=== PATIENT | female | born 1960 | race Caucasian/White ===

== ENCOUNTER → 2017-05-22 | Outpatient (CLI) | payer BC | LOC: LAB 13:59 | DX: E03.4 Atrophy of thyroid (acquired) (principal); N02.8 Recurrent and persistent hematuria with other morphologic changes ==

== ENCOUNTER → 2017-06-04 | Outpatient (CLI) | payer BC | LOC: LAB 07:34 | DX: N02.8 Recurrent and persistent hematuria with other morphologic changes (principal) ==

== ENCOUNTER → 2017-06-05 | Outpatient (CLI) | payer BC | LOC: MAMMO 08:13 | DX: Z12.31 Encounter for screening mammogram for malignant neoplasm of breast (principal) | CPT/HCPCS: G0202 ==

== ENCOUNTER → 2017-10-29 | Outpatient (CLI) | payer BC | LOC: RAD 12:17 | DX: M19.012 Primary osteoarthritis, left shoulder (principal) ==

== ENCOUNTER → 2017-12-07 | Outpatient (CLI) | payer BC ==
[~2017-12-07] VITALS: Ht 162.6 cm; Wt 74.5 kg
[~2017-12-07] MED LIST: ADVAIR DISKUS1 DS2 IH; AMBIEN5 M1 PO; CALCIUM500 M1 PO; GOOD NEIGHBOR180 MG PO; LEVOTHYROXINE0.05 MG PO; LOSARTAN POTASS50 M1 PO; MULTIVITAMIN1 SGL PO; SINGULAIR PO
[2017-12-07 08:05] LABS: EOS # 0.3 (0.04-0.40); EOS % 4.9 % (1.0-5.0); HEMATOCRIT 40.1 % (37.0-47.0); HEMOGLOBIN 13.2 g/dL (12.5-16.0); MEAN CELL VOLUME 97 fl (78-100); MEAN CORPUSCULAR HEMOGLOBIN 32 pg (27-31); MEAN CORPUSCULAR HGB CONC 33 g/dL (33-37); MEAN PLATELET VOLUME 9.5 fl (7.4-10.4); MONO # 0.6 (0.20-0.80); NEU # 2.6 (1.40-6.50); PLATELET COUNT 295 K/mm3 (130-400); RED BLOOD COUNT 4.12 M/mm3 (4.10-5.30); RED CELL DISTRIBUTION WIDTH 12.4 % (11.5-14.5); WHITE BLOOD COUNT 5.6 K/mm3 (4.8-10.8)
[2017-12-07 08:10] LABS: ALBUMIN 3.9 g/dL (3.5-5.0); BUN/CREATININE RATIO 19.2 (6.0-26.0); CALCIUM 9.2 mg/dL (8.4-10.2); POTASSIUM 4.3 mmol/L (3.6-5.0); TOTAL BILIRUBIN 0.4 mg/dL (0.2-1.3); TOTAL PROTEIN 7.2 g/dL (6.3-8.2)
[2017-12-07 08:30] VITALS: BP 91/63
[2017-12-07 09:25] LABS: PH-URINE 5.5 (5.0 - 8.0); URINE APPEARANCE HAZY; URINE BILIRUBIN NEGATIVE (NEGATIVE); URINE BLOOD 250 ery/uL (NEGATIVE); URINE COLOR YELLOW; URINE GLUCOSE NEGATIVE (NEGATIVE); URINE KETONE NEGATIVE (NEGATIVE); URINE LEUKOCYTE ESTERASE 1+ (NEGATIVE); URINE MUCUS PRESENT (NOT PRESENT); URINE NITRATE NEGATIVE (NEGATIVE); URINE PROTEIN(semi-quant) NEGATIVE (NEGATIVE); URINE UROBILINOGEN NORMAL (NORMAL)
== END ==
LOC: AMSURD 07:46
PROVIDERS: Obstetrics & Gynecology
DX: N95.0 Postmenopausal bleeding (principal); R05 Cough; R06.02 Shortness of breath

== ENCOUNTER → 2017-12-11 | Outpatient (CLI) | payer BC ==
[2017-12-07 08:30] VITALS: BP 91/63
== END ==
LOC: LAB 15:55
DX: N39.0 Urinary tract infection, site not specified (principal); Z88.0 Allergy status to penicillin

== ENCOUNTER 2017-12-13 15:30 | Outpatient (RCR) | payer BC | END 2018-02-20 | disposition home or self-care (01) | LOC: PT | DX: M25.512 Pain in left shoulder (principal) ==

== ENCOUNTER → 2017-12-14 | Outpatient (CLI) | payer BC ==
[2017-12-07 08:30] VITALS: BP 91/63
== END ==
LOC: CARDREHAB 11:07
DX: R94.31 Abnormal electrocardiogram [ECG] [EKG] (principal)

== ENCOUNTER → 2017-12-25 | Outpatient (CLI) | payer BC ==
[2017-12-07 08:30] VITALS: BP 91/63
== END ==
LOC: LAB 14:20
DX: Z86.14 Personal history of Methicillin resistant Staphylococcus aureus infection (principal)

== ENCOUNTER → 2018-05-14 | Outpatient (CLI) | payer BC ==
[2017-12-07 08:30] VITALS: BP 91/63
[2018-05-14 11:40] LABS: EOS # 0.2 (0.04-0.40); EOS % 3.5 % (1.0-5.0); HEMATOCRIT 39.4 % (37.0-47.0); HEMOGLOBIN 13.5 g/dL (12.5-16.0); LYMPH# 1.9 (1.50-4.00); MEAN CELL VOLUME 96 fl (78-100); MEAN CORPUSCULAR HEMOGLOBIN 33 pg (27-31); MEAN CORPUSCULAR HGB CONC 34 g/dL (33-37); MEAN PLATELET VOLUME 9.5 fl (7.4-10.4); MONO # 0.5 (0.20-0.80); NEU # 2.8 (1.40-6.50); PLATELET COUNT 271 K/mm3 (130-400); RED BLOOD COUNT 4.11 M/mm3 (4.10-5.30); RED CELL DISTRIBUTION WIDTH 12.5 % (11.5-14.5); WHITE BLOOD COUNT 5.5 K/mm3 (4.8-10.8)
[2018-05-14 12:00] LABS: BUN/CREATININE RATIO 21.3 (6.0-26.0); POTASSIUM 4.2 mmol/L (3.6-5.0); TOTAL BILIRUBIN 0.6 mg/dL (0.2-1.3); TOTAL PROTEIN 7.5 g/dL (6.3-8.2)
[2018-05-14 12:35] LABS: URINE APPEARANCE HAZY; URINE COLOR YELLOW
[2018-05-14 12:36] LABS: PH-URINE 6.5 (5.0 - 8.0); URINE BILIRUBIN NEGATIVE (NEGATIVE); URINE BLOOD 250 ery/uL (NEGATIVE); URINE GLUCOSE NEGATIVE (NEGATIVE); URINE KETONE NEGATIVE (NEGATIVE); URINE LEUKOCYTE ESTERASE 1+ (NEGATIVE); URINE NITRATE NEGATIVE (NEGATIVE); URINE PROTEIN(semi-quant) TRACE mg/dL (NEGATIVE); URINE UROBILINOGEN NORMAL (NORMAL); URINE WBC 0-1 /hpf (0-3)
== END ==
LOC: LAB 11:17
PROVIDERS: Family Medicine
DX: Z00.00 Encounter for general adult medical examination without abnormal findings (principal); E03.9 Hypothyroidism, unspecified; M81.0 Age-related osteoporosis without current pathological fracture; N02.8 Recurrent and persistent hematuria with other morphologic changes

== ENCOUNTER → 2018-05-29 | Outpatient (CLI) | payer BC ==
[2017-12-07 08:30] VITALS: BP 91/63
[2018-05-29 17:07] LABS: URINE APPEARANCE HAZY; URINE BILIRUBIN NEGATIVE (NEGATIVE); URINE BLOOD 250 ery/uL (NEGATIVE); URINE COLOR YELLOW; URINE GLUCOSE NEGATIVE (NEGATIVE); URINE KETONE NEGATIVE (NEGATIVE); URINE NITRATE NEGATIVE (NEGATIVE); URINE PROTEIN(semi-quant) NEGATIVE (NEGATIVE); URINE UROBILINOGEN NORMAL (NORMAL)
[2018-05-29 17:08] LABS: URINE LEUKOCYTE ESTERASE TRACE (NEGATIVE)
== END ==
LOC: LAB 15:05 → MAMMO 15:05
PROVIDERS: Family Medicine
DX: Z12.31 Encounter for screening mammogram for malignant neoplasm of breast (principal); N02.8 Recurrent and persistent hematuria with other morphologic changes

== ENCOUNTER → 2018-06-03 | Day surgery (SDC) | payer BC ==
[2017-12-07 08:30] VITALS: BP 91/63
== END ==
LOC: MSO 07:14
DX: K44.9 Diaphragmatic hernia without obstruction or gangrene (principal); R10.13 Epigastric pain; R68.81 Early satiety; R49.0 Dysphonia; Z12.11 Encounter for screening for malignant neoplasm of colon; Z79.899 Other long term (current) drug therapy; J45.909 Unspecified asthma, uncomplicated; E07.9 Disorder of thyroid, unspecified
CPT/HCPCS: 00813; J2704; J3010; J7120

== ENCOUNTER → 2018-06-06 | Outpatient (CLI) | payer BC ==
[2017-12-07 08:30] VITALS: BP 91/63
== END ==
LOC: MAMMO 13:32
DX: N63.21 Unspecified lump in the left breast, upper outer quadrant (principal)

== ENCOUNTER → 2018-07-26 | Outpatient (CLI) | payer BC ==
[2017-12-07 08:30] VITALS: BP 91/63
== END ==
LOC: LAB 07:22
DX: Z01.812 Encounter for preprocedural laboratory examination (principal)

== ENCOUNTER 2019-07-16 07:59 | Outpatient (RCR) | payer BC ==
[2017-12-07 08:30] VITALS: BP 91/63
== END 2019-07-16 08:30 | disposition home or self-care (01) ==
LOC: PT 07:59
DX: M25.512 Pain in left shoulder (principal)

== ENCOUNTER → 2019-09-12 | Outpatient (CLI) | payer BC ==
[2017-12-07 08:30] VITALS: BP 91/63
== END ==
LOC: PT 14:52
DX: M25.562 Pain in left knee (principal); Z96.652 Presence of left artificial knee joint; Z98.890 Other specified postprocedural states

== ENCOUNTER 2019-10-30 10:30 | Outpatient (RCR) | payer BC ==
[2017-12-07 08:30] VITALS: BP 91/63
== END 2019-10-30 11:00 | disposition still patient (30) ==
LOC: PT 10:30
DX: M25.512 Pain in left shoulder (principal); Z98.890 Other specified postprocedural states

== ENCOUNTER 2019-11-30 09:49 | Emergency (ER) | payer BC ==
[2019-11-30] MEDS ORDERED: VENLAFAXINE HYD75 MG PO (09:56)
[2019-11-30] MEDS ORDERED: VENLAFAXINE H37.5 M4 PO (09:56)
[2019-11-30 10:08] LABS: HEMATOCRIT 40.4 % (37.0-47.0); HEMOGLOBIN 13.4 g/dL (12.5-16.0); MEAN CELL VOLUME 102 fl (78-100); MEAN CORPUSCULAR HEMOGLOBIN 34 pg (27-31); MEAN CORPUSCULAR HGB CONC 33 g/dL (33-37); MEAN PLATELET VOLUME 8.6 fl (7.4-10.4); PLATELET COUNT 213 K/mm3 (130-400); RED BLOOD COUNT 3.95 M/mm3 (4.10-5.30); RED CELL DISTRIBUTION WIDTH 13.5 % (11.5-14.5); WHITE BLOOD COUNT 6.1 K/mm3 (4.8-10.8)
[2019-11-30 10:18] LABS: BAND 2 % (0-10); LYMPHOCYTE 3 % (20-51); MONOCYTE 8 % (3-10); NEUTROPHILS 84 % (42-75)
[2019-11-30] MEDS ORDERED: GUAIFEN-CODEINE5 ML PO (10:50)
[2019-11-30 11:21] VITALS: BP 137/68
== END 2019-11-30 11:02 | disposition home or self-care (01) ==
LOC: ED 09:49
PROVIDERS: Family Medicine
DX: J10.1 Influenza due to other identified influenza virus with other respiratory manifestations (principal); I10 Essential (primary) hypertension; E03.9 Hypothyroidism, unspecified

== ENCOUNTER → 2020-05-19 | Outpatient (CLI) | payer BC ==
[~2020-05-19] MED LIST changes: +GUAIFEN-CODEINE5 ML PO; +VENLAFAXINE H37.5 M4 PO; +VENLAFAXINE HYD75 MG PO
== END ==
LOC: LAB 07:08
DX: R50.9 Fever, unspecified (principal); R51 Headache; R49.0 Dysphonia; R05 Cough; Z20.828 Contact with and (suspected) exposure to other viral communicable diseases

== ENCOUNTER 2020-09-10 15:00 | Outpatient (RCR) | payer BC | END 2020-10-25 | disposition home or self-care (01) | LOC: OT | DX: M77.01 Medial epicondylitis, right elbow (principal); M77.12 Lateral epicondylitis, left elbow ==

== ENCOUNTER → 2020-09-22 | Outpatient (CLI) | payer BC | LOC: LAB 08:01 | DX: R05 Cough (principal); R51.9 Headache, unspecified; R11.0 Nausea; Z20.828 Contact with and (suspected) exposure to other viral communicable diseases ==

== ENCOUNTER → 2020-11-16 | Outpatient (REF) | LOC: LAB 17:46 | DX: E03.4 Atrophy of thyroid (acquired) (principal); L65.9 Nonscarring hair loss, unspecified; E55.9 Vitamin D deficiency, unspecified ==

== ENCOUNTER → 2020-11-22 | Outpatient (REF) | LOC: LAB 12:53 | DX: L73.9 Follicular disorder, unspecified (principal) ==

== ENCOUNTER → 2021-03-10 | Outpatient (CLI) | payer BC | LOC: RAD 16:50 | DX: S82.402A Unspecified fracture of shaft of left fibula, initial encounter for closed fracture (principal); S93.432A Sprain of tibiofibular ligament of left ankle, initial encounter; S93.422A Sprain of deltoid ligament of left ankle, initial encounter ==

== ENCOUNTER → 2021-05-16 | Outpatient (REF) | LOC: LAB 16:56 | DX: R58 Hemorrhage, not elsewhere classified (principal) ==

== ENCOUNTER → 2021-06-06 | Outpatient (REF) | LOC: LAB 09:20 | DX: T78.40XD Allergy, unspecified, subsequent encounter (principal); E03.4 Atrophy of thyroid (acquired); E78.5 Hyperlipidemia, unspecified; R31.29 Other microscopic hematuria ==

== ENCOUNTER → 2021-06-06 | Outpatient (CLI) | payer BC | LOC: RAD 09:21 | DX: M47.812 Spondylosis without myelopathy or radiculopathy, cervical region (principal) ==

== ENCOUNTER → 2021-06-09 | Outpatient (CLI) | payer BC | LOC: RAD 15:37 | DX: M47.812 Spondylosis without myelopathy or radiculopathy, cervical region (principal); M48.02 Spinal stenosis, cervical region ==

== ENCOUNTER → 2021-06-17 | Outpatient (REF) | LOC: LAB 07:11 | PROVIDERS: Family Medicine | DX: R31.9 Hematuria, unspecified (principal) ==

== ENCOUNTER → 2021-06-24 | Outpatient (CLI) | payer BC | LOC: RAD 06-23 08:30 | DX: R31.9 Hematuria, unspecified (principal); Z90.710 Acquired absence of both cervix and uterus | CPT/HCPCS: Q9967 ==

== ENCOUNTER → 2021-07-28 | Outpatient (CLI) | payer BC | LOC: RAD 18:04 | DX: M79.671 Pain in right foot (principal); R07.81 Pleurodynia ==

== ENCOUNTER → 2021-11-05 | Outpatient (CLI) | payer BC | LOC: LAB 13:18 | DX: Z20.822 Contact with and (suspected) exposure to COVID-19 (principal) ==

== ENCOUNTER → 2022-06-09 | Outpatient (REF) | LOC: LAB 08:54 | DX: Z00.00 Encounter for general adult medical examination without abnormal findings (principal); E78.5 Hyperlipidemia, unspecified; E03.4 Atrophy of thyroid (acquired); E55.9 Vitamin D deficiency, unspecified ==

== ENCOUNTER → 2023-01-18 | Outpatient (CLI) | payer BC | LOC: LAB 17:02 | DX: Z79.899 Other long term (current) drug therapy (principal) ==

== ENCOUNTER 2023-05-22 07:45 | Outpatient (RCR) | payer BC | END 2023-06-21 | disposition home or self-care (01) | LOC: PT | DX: M50.30 Other cervical disc degeneration, unspecified cervical region (principal) ==

== ENCOUNTER → 2023-07-03 | Outpatient (CLI) | payer BC | LOC: RAD 08:00 | DX: M47.816 Spondylosis without myelopathy or radiculopathy, lumbar region (principal) ==

== ENCOUNTER → 2023-10-01 | Outpatient (CLI) | payer BC | LOC: RAD 11:45 | DX: S62.624A Displaced fracture of middle phalanx of right ring finger, initial encounter for closed fracture (principal); X58.XXXA Exposure to other specified factors, initial encounter ==

== ENCOUNTER → 2023-11-12 | Outpatient (CLI) | payer BC | LOC: LAB 13:21 | DX: E03.4 Atrophy of thyroid (acquired) (principal); K12.0 Recurrent oral aphthae; Z86.2 Personal history of diseases of the blood and blood-forming organs and certain disorders involving the immune mechanism ==

== ENCOUNTER 2024-07-22 09:20 | Outpatient (RCR) | payer BC | END 2024-08-21 | disposition home or self-care (01) | LOC: PT | DX: S83.242D Other tear of medial meniscus, current injury, left knee, subsequent encounter (principal); S99.912D Unspecified injury of left ankle, subsequent encounter ==

== ENCOUNTER → 2024-07-24 | Outpatient (CLI) | payer BC | LOC: AMSURD 16:32 | DX: Z01.810 Encounter for preprocedural cardiovascular examination (principal) ==

== ENCOUNTER → 2024-10-17 | Outpatient (CLI) | payer BC | LOC: RAD 14:03 | DX: R05.3 Chronic cough (principal) ==

== ENCOUNTER → 2025-01-22 | Outpatient (CLI) | payer OTHER ==
[2025-01-22 15:19] LABS: BASO # 0.03 K/mm3 (0.02-0.10); EOS # 0.28 K/mm3 (0.04-0.40); EOS % 4.4 % (1.0-5.0); HEMATOCRIT 34.4 % (37.0-47.0); HEMOGLOBIN 11.5 g/dL (12.5-16.0); MEAN CELL VOLUME 101 fl (78-100); MEAN CORPUSCULAR HEMOGLOBIN 34 pg (27-31); MEAN CORPUSCULAR HGB CONC 33 g/dL (33-37); MEAN PLATELET VOLUME 9.4 fl (7.4-10.4); MONO # 0.67 K/mm3 (0.20-0.80); NEU # 3.19 K/mm3 (1.40-6.50); PLATELET COUNT 291 K/mm3 (130-400); RED BLOOD COUNT 3.42 M/mm3 (4.10-5.30); RED CELL DISTRIBUTION WIDTH 13.3 % (11.5-14.5); WHITE BLOOD COUNT 6.4 K/mm3 (4.8-10.8)
[2025-01-22 15:20] LABS: ALBUMIN 3.9 g/dL (3.4-4.8)
[2025-01-22 15:21] LABS: CALCIUM 9.6 mg/dL (8.3-10.5)
[2025-01-22 15:22] LABS: TOTAL PROTEIN 6.8 g/dL (6.2-8.1)
[2025-01-22 15:24] LABS: TOTAL BILIRUBIN 0.5 mg/dL (0.2-1.2)
[2025-01-22 15:30] LABS: URINE APPEARANCE CLEAR (CLEAR); URINE BILIRUBIN NEGATIVE (NEGATIVE); URINE COLOR YELLOW (YELLOW); URINE GLUCOSE NEGATIVE (NEGATIVE); URINE KETONE NEGATIVE (NEGATIVE); URINE NITRATE NEGATIVE (NEGATIVE); URINE PROTEIN(semi-quant) NEGATIVE (NEGATIVE)
[2025-01-22 15:31] LABS: URINE BLOOD 1+ (NEGATIVE); URINE LEUKOCYTE ESTERASE 1+ (NEGATIVE)
== END ==
LOC: LAB 15:00
PROVIDERS: Registered Nurse
DX: N02.8 Recurrent and persistent hematuria with other morphologic changes (principal)